=== PATIENT | male | born 1970 | race Caucasian/White ===

== ENCOUNTER 2020-06-01 18:45 | Emergency (ER) | payer MEDICAID ==
[~2020-06-01] VITALS: Ht 180.3 cm; Wt 88.5 kg
[2020-06-01 19:30] VITALS: BP_SYST 129
--- NOTE | 2020-06-01 19:36 | NUR ---
Patient triaged and placed in waiting room. VSS and patient appears in no acute distress at this time. Accompanied by , awaiting available bed, and MD notified of need for MSE.
--- NOTE | 2020-06-01 19:40 | NUR ---
Placed in room 3 . Placed on payroll tax analyst, blood pressure machine and pulse oximeter. To gown for exam. Side rails up. Report given to MARILEE FATIMA.
--- NOTE | 2020-06-01 19:40 | NUR ---
ER at bedside examining patient. Positioned patient for comfort, placed on cardiac specialist, noted nsr. Patient c/o cp x2 weeks increasing upon taking a deep breath. Patient states pain radiates to left arm. Introduced self to patient, positioned for comfort and safety w/ bed to low position sr up. patient states pain 7/10
[2020-06-01] MEDS ORDERED: ASPIRIN 325 MG TABLET PO ONE (19:45)
[2020-06-01 19:58] LABS: BASOPHILS % (AUTO) 0.5 % (0.0-2.0); EOSINOPHILS # (AUTO) 0.1 K/uL (0.0-0.4); EOSINOPHILS % (AUTO) 1.6 % (0.0-4.0); HEMATOCRIT 47.4 % (36-54); HEMOGLOBIN 16.9 g/dL (14.0-18.0); LYMPHOCYTES # (AUTO) 2.2 K/uL (1.0-5.5); LYMPHOCYTES % (AUTO) 31.8 % (20.5-51.5); MEAN CORPUSCULAR HEMOGLOBIN 32 pg (27-31); MEAN CORPUSCULAR HGB CONC 36 % (32-36); MEAN CORPUSCULAR VOLUME 91 fL (79.0-98.0); MONOCYTES # (AUTO) 0.5 K/uL (0.0-1.0); MONOCYTES % (AUTO) 6.9 % (1.7-9.3); NEUTROPHILS % (AUTO) 59.2 % (40.0-70.0); PLATELET COUNT (AUTO) 256 K/uL (130-430); RED CELL DISTRIBUTION WIDTH 13.7 % (9.0-15.0); WHITE BLOOD COUNT (AUTO) 6.8 K/uL (4.8-10.8)
[2020-06-01 20:28] LABS: CALCIUM 8.5 mg/dL (8.4-11.0); CREATININE 0.84 mg/dL (0.55-1.30); POTASSIUM 3.6 mmol/L (3.5-5.1)
[2020-06-01] MEDS ORDERED: NITROGLYCERIN 1 INCH (GM) OINT. ONE (20:28)
[2020-06-01] MEDS ORDERED: MORPHINE 4 MG/ML INJ. SYRINGE ONE (20:29)
--- NOTE | 2020-06-01 20:35 | NUR ---
patient medicated as ordered. will observe for any adverse reaction. refused morphine 4mg ivp 2nd to stating pain is probably r/t stress.
[2020-06-01 20:39] LABS: ALBUMIN 4.4 g/dL (3.4-4.8); TOTAL BILIRUBIN 0.7 mg/dL (0.0-1.0)
--- NOTE | 2020-06-01 21:44 | NUR ---
patient resting comfortably at this time in no acute distress. Bed to low position sr up, nsr on intelligence senior sergeant. Awaiting repeat trop and MD dispo.
[2020-06-01 22:04] VITALS: BP_SYST 132
--- NOTE | 2020-06-01 22:04 | NUR ---
Patient given written and verbal discharge instructions and verbalizes understanding. ER MD discussed with patient the results and treatment provided. Patient in stable condition. ID arm band removed. IV catheter removed intact and dressing applied, no active bleeding. Rx of given. Patient educated on pain management and to follow up with PMD. Pain Scale . Opportunity for questions provided and answered. Medication side effect fact sheet provided.
[2020-06-01] MEDS ORDERED: NITROGLYCERIN 1 INCH (GM) OINT. TP ONE (23:30)
[2020-06-01] MEDS ORDERED: MORPHINE 4 MG/ML INJ. SYRINGE IVP ONE (23:30)
== END 2020-06-01 22:04 | disposition home or self-care (01) ==
LOC: SED 18:45
DX: R07.89 Other chest pain (principal)
CPT/HCPCS: 36415; 71045; 80053; 83880; 84484; 85025; 85379; 93005; 99285; J2270

== ENCOUNTER 2022-03-07 10:59 | Emergency (ER) | payer SELFPAY ==
[~2022-03-07] VITALS: Ht 177.8 cm; Wt 90.7 kg
[2022-03-07 11:16] VITALS: BP_SYST 149
--- NOTE | 2022-03-07 11:19 | NUR ---
Triaged pt and placed in waiting room until bed becomes available. Pt stable and accompanied by significant other.
--- NOTE | 2022-03-07 14:29 | NUR ---
Dr Thurman evaluating patient in the triage room
[2022-03-07] MEDS ORDERED: KETOROLAC TROMETHAMINE 60 MG/2 ML VIAL IM ONE (14:30)
== END 2022-03-07 15:34 | disposition left against medical advice (07) ==
LOC: SED 10:59
DX: M54.50 Low back pain, unspecified (principal); Z79.899 Other long term (current) drug therapy
CPT/HCPCS: 99281